=== PATIENT | female | born 1970 | race Caucasian/White ===

== ENCOUNTER → 2017-08-09 | Outpatient (CLI) | payer BC ==
[2017-08-09 08:50] LABS: Basophils # (auto) 0 uL; Basophils % (auto) 0.5 % (0.0-2.0); Eosinophils # (auto) 0.2 uL; Monocytes # (auto) 0.6 uL; Neutrophils # (auto) 5.8 uL
[2017-08-09 08:52] LABS: Eosinophils % (auto) 2.1 % (0.0-7.0); Hematocrit 25.5 % (36.0-46.0); Hemoglobin 7.6 g/dL (12.2-16.2); Lymphocytes % (auto) 23.2 % (10.0-50.0); Mean Corpuscular Hgb Conc. 29.8 g/dL (32.0-36.0); Mean Corpuscular Volume 63.8 fL (80.0-100.0); Monocytes % (auto) 7.4 % (0.0-12.0); Neutrophils % (auto) 66.8 % (37.0-80.0); Platelet Count (auto) 453 10^3/uL (140-450); Red Cell Distribution Width 17.7 % (11.8-14.3); White Blood Cell 8.7 10^3/uL (4.4-10.8)
[2017-08-09 09:17] LABS: Leuteinizing Hormone 2.8 IU/L
[2017-08-09 09:19] LABS: Follicle Stimulating Hormone 5.08 IU/L (SEE BELOW)
== END | disposition home or self-care (01) ==
LOC: LAB 07:34
PROVIDERS: ATTEND Obstetrics & Gynecology
DX: N93.9 Abnormal uterine and vaginal bleeding, unspecified (principal)
CPT/HCPCS: 36415; 82670; 83001; 83002; 84403; 84443; 85025

== ENCOUNTER 2017-08-10 13:51 | Observation (INO) | payer BC ==
[~2017-08-10] VITALS: Ht 165.1 cm; Wt 113.4 kg
[2017-08-10] VITALS (8 sets, daily range): BP systolic 105–133; BP diastolic 42–78
[2017-08-10 14:58] LABS: Basophils # (auto) 0.1 uL; Eosinophils # (auto) 0.2 uL; Monocytes # (auto) 0.7 uL; Nucleated Red Blood Cells % 0.1 %; Red Cell Distribution Width 18.2 % (11.8-14.3)
[2017-08-10 15:01] LABS: Hematocrit 26.2 % (36.0-46.0); Hemoglobin 7.9 g/dL (12.2-16.2); Lymphocytes # (auto) 2.6 uL; Mean Corpuscular Hemoglobin 19.1 pg (28.0-32.0); Mean Corpuscular Hgb Conc. 30.1 g/dL (32.0-36.0); Mean Corpuscular Volume 63.5 fL (80.0-100.0); Neutrophils # (auto) 6.3 uL; Platelet Count (auto) 459 10^3/uL (140-450); Red Blood Cells 4.12 10^6/uL (4.0-5.20); White Blood Cell 9.9 10^3/uL (4.4-10.8)
[2017-08-10 15:13] LABS: INR 0.94 (0.9-1.15); Partial Thromboplastin Time 27.2 sec (22.64-33.71); Prothrombin Time 10.2 sec (9.37-12.3)
[2017-08-10 15:22] LABS: Albumin 3.6 g/dL (3.4-5.0); BUN/Creatinine Ratio 19.7; Bilirubin, Total 0.2 mg/dL (0.2-1.0); Calcium 8.5 mg/dL (8.5-10.1); Magnesium 2.4 mg/dL (1.6-2.6); Potassium 3.5 mmol/L (3.5-5.1); Total Protein 7.8 g/dL (6.4-8.2)
[2017-08-10 15:40] LABS: Urine Specific Gravity 1.007 (1.001-1.035)
[2017-08-10 15:41] LABS: Urine Bacteria NONE SEEN /hpf (None Seen); Urine Blood Negative /uL (Negative); Urine Mucus FEW (None Seen); Urine WBC <1 /hpf (0 - 5)
[2017-08-10 22:33] LABS: Hematocrit 29.1 % (36.0-46.0); Hemoglobin 8.9 g/dL (12.2-16.2)
== END 2017-08-10 23:24 | disposition home or self-care (01) | DRG 812 ==
LOC: ER 13:51 → OVERFLOW 14:05 → ER 23:23
PROVIDERS: ADMIT Family Medicine; ATTEND Family Medicine
DX: D50.9 Iron deficiency anemia, unspecified (principal); N92.0 Excessive and frequent menstruation with regular cycle; N93.9 Abnormal uterine and vaginal bleeding, unspecified; R94.6 Abnormal results of thyroid function studies; Z83.3 Family history of diabetes mellitus; Z82.49 Family history of ischemic heart disease and other diseases of the circulatory system
CPT/HCPCS: 36415; 71045; 80053; 81001; 83735; 84443; 85014; 85018; 85025; 85610; 85730; 86850; 86900; 86901; 86920; 99285; G0378; J7030; P9016; 36430

== ENCOUNTER → 2017-08-19 | Outpatient (CLI) | payer BC ==
[2017-08-19 13:45] LABS: Basophils # (auto) 0.1 uL; Eosinophils # (auto) 0.2 uL; Monocytes # (auto) 0.7 uL
[2017-08-19 13:47] LABS: Basophils % (auto) 0.9 % (0.0-2.0); Eosinophils % (auto) 1.8 % (0.0-7.0); Hematocrit 31.9 % (36.0-46.0); Hemoglobin 9.9 g/dL (12.2-16.2); Lymphocytes # (auto) 2.4 uL; Lymphocytes % (auto) 25.7 % (10.0-50.0); Mean Corpuscular Hemoglobin 21.3 pg (28.0-32.0); Mean Corpuscular Hgb Conc. 30.9 g/dL (32.0-36.0); Mean Corpuscular Volume 68.8 fL (80.0-100.0); Monocytes % (auto) 7.3 % (0.0-12.0); Neutrophils # (auto) 6.1 uL; Neutrophils % (auto) 64.3 % (37.0-80.0); Platelet Count (auto) 448 10^3/uL (140-450); Red Blood Cells 4.64 10^6/uL (4.0-5.20); White Blood Cell 9.5 10^3/uL (4.4-10.8)
[2017-08-19 13:48] LABS: Red Cell Distribution Width 26.2 % (11.8-14.3)
== END | disposition home or self-care (01) ==
LOC: LAB 13:28
PROVIDERS: ATTEND Obstetrics & Gynecology
DX: N93.9 Abnormal uterine and vaginal bleeding, unspecified (principal); D50.9 Iron deficiency anemia, unspecified; R94.6 Abnormal results of thyroid function studies
CPT/HCPCS: 36415; 84443; 85025

== ENCOUNTER → 2017-08-19 | Outpatient (CLI) | payer BC | END | disposition home or self-care (01) | LOC: LAB 10:46 | PROVIDERS: ATTEND Obstetrics & Gynecology | DX: N93.8 Other specified abnormal uterine and vaginal bleeding (principal) ==

== ENCOUNTER → 2017-09-13 | Outpatient (CLI) | payer BC ==
[2017-09-13 07:51] LABS: Basophils # (auto) 0.1 uL; Eosinophils # (auto) 0.1 uL; Lymphocytes # (auto) 1.9 uL; Monocytes # (auto) 0.6 uL; Platelet Count (auto) 390 10^3/uL (140-450)
[2017-09-13 07:54] LABS: Basophils % (auto) 0.6 % (0.0-2.0); Eosinophils % (auto) 1.8 % (0.0-7.0); Hematocrit 32.6 % (36.0-46.0); Hemoglobin 10.3 g/dL (12.2-16.2); Lymphocytes % (auto) 22.5 % (10.0-50.0); Mean Corpuscular Hemoglobin 21.8 pg (28.0-32.0); Mean Corpuscular Hgb Conc. 31.6 g/dL (32.0-36.0); Mean Corpuscular Volume 68.8 fL (80.0-100.0); Monocytes % (auto) 7.4 % (0.0-12.0); Neutrophils # (auto) 5.6 uL; Neutrophils % (auto) 67.7 % (37.0-80.0); Red Blood Cells 4.73 10^6/uL (4.0-5.20); White Blood Cell 8.3 10^3/uL (4.4-10.8)
[2017-09-13 08:00] LABS: Red Cell Distribution Width 26.6 % (11.8-14.3)
[2017-09-13 08:46] LABS: Cholesterol 150 mg/dL (< 200); HDL Cholesterol 29 mg/dL (40-59); LDL Cholesterol 99 mg/dL (< 100); Triglycerides 213 mg/dL (< 150)
[2017-09-13 11:06] LABS: Free T4 (Free Thyroxine) 1.7 ng/dL (0.89-1.76)
[2017-09-13 11:07] LABS: T3 Total 1.29 ng/mL (0.60-1.81)
== END | disposition home or self-care (01) ==
LOC: LAB 07:26
PROVIDERS: ATTEND Physician Assistant
DX: E78.5 Hyperlipidemia, unspecified (principal); E03.9 Hypothyroidism, unspecified; E07.9 Disorder of thyroid, unspecified
CPT/HCPCS: 36415; 80061; 84439; 84443; 84480; 85025; 86376; 86800

== ENCOUNTER → 2017-12-22 | Outpatient (CLI) | payer BC ==
[2017-12-22 08:26] LABS: Basophils # (auto) 0 uL; Eosinophils # (auto) 0.2 uL; Hemoglobin 9.4 g/dL (12.2-16.2); Lymphocytes % (auto) 23.8 % (10.0-50.0); Neutrophils # (auto) 5.2 uL; White Blood Cell 7.8 10^3/uL (4.4-10.8)
[2017-12-22 08:28] LABS: Basophils % (auto) 0.4 % (0.0-2.0); Hematocrit 30.9 % (36.0-46.0); Lymphocytes # (auto) 1.8 uL; Mean Corpuscular Hgb Conc. 30.4 g/dL (32.0-36.0); Mean Corpuscular Volume 65.8 fL (80.0-100.0); Monocytes # (auto) 0.6 uL; Monocytes % (auto) 7.2 % (0.0-12.0); Neutrophils % (auto) 66.6 % (37.0-80.0); Platelet Count (auto) 417 10^3/uL (140-450); Red Cell Distribution Width 16.7 % (11.8-14.3)
[2017-12-22 08:50] LABS: Albumin 3.5 g/dL (3.4-5.0); BUN/Creatinine Ratio 27.8; Bilirubin, Total 0.2 mg/dL (0.2-1.0); Calcium 8.6 mg/dL (8.5-10.1); Potassium 3.6 mmol/L (3.5-5.1); Total Protein 7.9 g/dL (6.4-8.2)
[2017-12-22 08:59] LABS: Free T4 (Free Thyroxine) 1.27 ng/dL (0.89-1.76); T3 Total 0.95 ng/mL (0.60-1.81)
== END | disposition home or self-care (01) ==
LOC: LAB 07:18
PROVIDERS: ATTEND Physician Assistant
DX: E78.5 Hyperlipidemia, unspecified (principal); E03.9 Hypothyroidism, unspecified; E55.9 Vitamin D deficiency, unspecified; R76.8 Other specified abnormal immunological findings in serum; R94.6 Abnormal results of thyroid function studies; D64.9 Anemia, unspecified; Z82.61 Family history of arthritis
CPT/HCPCS: 36415; 80053; 80061; 82306; 83540; 83550; 84439; 84443; 84480; 85025

== ENCOUNTER → 2018-05-31 | Outpatient (CLI) | payer BC ==
[2018-05-31 08:47] LABS: % Iron Saturation 5.2 % (15-50)
[2018-05-31 08:48] LABS: Albumin 3.3 g/dL (3.4-5.0); Calcium 8.2 mg/dL (8.5-10.1); Potassium 3.9 mmol/L (3.5-5.1)
[2018-05-31 08:52] LABS: BUN/Creatinine Ratio 26.4; Bilirubin, Total 0.3 mg/dL (0.2-1.0); Total Protein 7.6 g/dL (6.4-8.2)
[2018-05-31 09:02] LABS: Basophils # (auto) 0 uL; Eosinophils # (auto) 0.2 uL; Lymphocytes # (auto) 1.8 uL; Mean Corpuscular Hgb Conc. 30.1 g/dL (32.0-36.0); White Blood Cell 8.7 10^3/uL (4.4-10.8)
[2018-05-31 09:04] LABS: Basophils % (auto) 0.4 % (0.0-2.0); Eosinophils % (auto) 1.8 % (0.0-7.0); Hematocrit 30.1 % (36.0-46.0); Hemoglobin 9.1 g/dL (12.2-16.2); Mean Corpuscular Hemoglobin 19.8 pg (28.0-32.0); Mean Corpuscular Volume 65.6 fL (80.0-100.0); Monocytes # (auto) 0.6 uL; Monocytes % (auto) 7.1 % (0.0-12.0); Neutrophils # (auto) 6.1 uL; Neutrophils % (auto) 69.7 % (37.0-80.0); Platelet Count (auto) 418 10^3/uL (140-450); Red Blood Cells 4.59 10^6/uL (4.0-5.20); Red Cell Distribution Width 17.7 % (11.8-14.3)
[2018-05-31 10:10] LABS: Free T4 (Free Thyroxine) 1.05 ng/dL (0.89-1.76); T3 Total 0.98 ng/mL (0.60-1.81)
== END | disposition home or self-care (01) ==
LOC: LAB 07:35
PROVIDERS: ATTEND Physician Assistant
DX: E03.9 Hypothyroidism, unspecified (principal); D64.9 Anemia, unspecified; E55.9 Vitamin D deficiency, unspecified; E61.1 Iron deficiency; R76.8 Other specified abnormal immunological findings in serum; R94.6 Abnormal results of thyroid function studies; E78.5 Hyperlipidemia, unspecified
CPT/HCPCS: 36415; 80053; 80061; 82306; 83540; 83550; 84439; 84443; 84480; 85025; 86038; 86431

== ENCOUNTER → 2018-07-12 | Outpatient (CLI) | payer BC ==
[2018-07-12 10:27] LABS: Basophils # (auto) 0 uL; Eosinophils # (auto) 0.1 uL; Eosinophils % (auto) 1.7 % (0.0-7.0); Hemoglobin 8.3 g/dL (12.2-16.2); Mean Corpuscular Hgb Conc. 30.3 g/dL (32.0-36.0)
[2018-07-12 10:28] LABS: Basophils % (auto) 0.5 % (0.0-2.0); Hematocrit 27.4 % (36.0-46.0); Lymphocytes # (auto) 1.6 uL; Lymphocytes % (auto) 20.9 % (10.0-50.0); Mean Corpuscular Hemoglobin 20.7 pg (28.0-32.0); Mean Corpuscular Volume 68.4 fL (80.0-100.0); Monocytes # (auto) 0.6 uL; Monocytes % (auto) 7.6 % (0.0-12.0); Neutrophils # (auto) 5.3 uL; Neutrophils % (auto) 69.3 % (37.0-80.0); Platelet Count (auto) 395 10^3/uL (140-450); Red Blood Cells 4.01 10^6/uL (4.0-5.20); White Blood Cell 7.7 10^3/uL (4.4-10.8)
[2018-07-12 10:35] LABS: Red Cell Distribution Width 20.8 % (11.8-14.3)
== END | disposition home or self-care (01) ==
LOC: LAB 08:34
PROVIDERS: ATTEND Obstetrics & Gynecology
DX: N93.9 Abnormal uterine and vaginal bleeding, unspecified (principal)
CPT/HCPCS: 36415; 84443; 85025

== ENCOUNTER 2018-07-20 14:24 | Emergency (ER) | payer BC ==
[~2018-07-20] VITALS: Ht 165.1 cm; Wt 108.9 kg
[2018-07-20 15:19] LABS: Basophils # (auto) 0 uL; Basophils % (auto) 0.4 % (0.0-2.0); Eosinophils # (auto) 0.2 uL; Eosinophils % (auto) 1.8 % (0.0-7.0); Hemoglobin 7.3 g/dL (12.2-16.2); Lymphocytes # (auto) 1.8 uL; Lymphocytes % (auto) 20.7 % (10.0-50.0); Mean Corpuscular Hemoglobin 20.7 pg (28.0-32.0); Mean Corpuscular Hgb Conc. 30.4 g/dL (32.0-36.0); Mean Corpuscular Volume 68.2 fL (80.0-100.0); Monocytes # (auto) 0.6 uL; Monocytes % (auto) 7.4 % (0.0-12.0); Neutrophils # (auto) 6.1 uL; Neutrophils % (auto) 69.7 % (37.0-80.0); Platelet Count (auto) 408 10^3/uL (140-450); Red Blood Cells 3.52 10^6/uL (4.0-5.20); White Blood Cell 8.8 10^3/uL (4.4-10.8)
[2018-07-20 15:21] LABS: Red Cell Distribution Width 20.1 % (11.8-14.3)
[2018-07-20 15:36] LABS: Albumin 3.3 g/dL (3.4-5.0); Potassium 3.8 mmol/L (3.5-5.1)
[2018-07-20 15:37] LABS: INR 0.93 (0.9-1.15); Partial Thromboplastin Time 27.4 sec (23.78-33.04)
[2018-07-20 15:39] LABS: BUN/Creatinine Ratio 23.9; Bilirubin, Total 0.2 mg/dL (0.2-1.0); Total Protein 7.2 g/dL (6.4-8.2)
[2018-07-20] MEDS ORDERED: SODIUM BICARBONATE 8.4 % INJ 50ML VIAL IV ONE (19:14)
[2018-07-20 23:00] VITALS: BP 135/78
[2018-07-20 23:19] VITALS: BP 135/78
[2018-07-20 23:35] VITALS: BP 122/80
== END 2018-07-21 01:48 | disposition home or self-care (01) ==
LOC: ER 14:26
DX: D64.9 Anemia, unspecified (principal); N92.0 Excessive and frequent menstruation with regular cycle
CPT/HCPCS: 36415; 36430; 80053; 84443; 85025; 85610; 85730; 86850; 86900; 86901; 86920; 94761; 99285; J7040; P9016

== ENCOUNTER → 2018-08-05 | Day surgery (SDC) | payer BC ==
[2018-08-02 10:42] LABS: Eosinophils # (auto) 0.1 uL; Eosinophils % (auto) 1.8 % (0.0-7.0); Hemoglobin 10.2 g/dL (12.2-16.2); Monocytes # (auto) 0.7 uL
[2018-08-02 10:45] LABS: Basophils # (auto) 0 uL; Basophils % (auto) 0.5 % (0.0-2.0); Hematocrit 32.2 % (36.0-46.0); Lymphocytes # (auto) 1.9 uL; Lymphocytes % (auto) 24.2 % (10.0-50.0); Mean Corpuscular Hemoglobin 22.4 pg (28.0-32.0); Mean Corpuscular Hgb Conc. 31.6 g/dL (32.0-36.0); Mean Corpuscular Volume 70.8 fL (80.0-100.0); Monocytes % (auto) 9.3 % (0.0-12.0); Neutrophils # (auto) 4.9 uL; Neutrophils % (auto) 64.2 % (37.0-80.0); Platelet Count (auto) 356 10^3/uL (140-450); Red Blood Cells 4.55 10^6/uL (4.0-5.20); Urine Bacteria FEW /hpf (None Seen); Urine Blood 1+ /uL (Negative); Urine Mucus FEW (None Seen); Urine Specific Gravity 1.019 (1.001-1.035); Urine WBC 3 /hpf (0 - 5); White Blood Cell 7.7 10^3/uL (4.4-10.8)
[2018-08-02 10:52] LABS: Potassium 3.7 mmol/L (3.5-5.1)
[2018-08-02 10:53] LABS: Red Cell Distribution Width 22.1 % (11.8-14.3)
[2018-08-02 10:55] LABS: INR 0.93 (0.9-1.15); Partial Thromboplastin Time 29.2 sec (23.78-33.04)
[2018-08-02 11:01] LABS: Albumin 3.3 g/dL (3.4-5.0); BUN/Creatinine Ratio 19.4; Bilirubin, Total 0.2 mg/dL (0.2-1.0); Calcium 8.3 mg/dL (8.5-10.1); Total Protein 7.5 g/dL (6.4-8.2)
[~2018-08-05] MED LIST: FLUO40CA PO; HYDROmorphone HCL 2 MG/ML VL IV PRN; KETOROLAC TROMETH 30 MG/ML 1ML VIAL IV ONE; KETOROLAC TROMETH 60MG/2ML VIAL IM ONE; LACTATED RINGER'S 1,000 ML IV SCH; LEVO125T7 PO; LIDOCAINE HCL 2% TOP JELLY 5ML TOP ONE; MEPERIDINE HCL (50 MG/ML) 1 ML VIAL ONE; METOCLOPRAMIDE HCL 5MG/ml INJ 2ml VIAL IV ONE; MIDAZOLAM HCL 1MG/1ML-2 ML VIAL ONE; ONDANSETRON HCL 4 MG/2 ML VIAL IV PRN; ONDANSETRON HCL 4 MG/2 ML VIAL ONE; PROPOFOL 10 MG/ML 20 ML IV ONE; SODIUM CHLORIDE LOCK 20 ML ONE; SUCCINYLCHOLINE CHLORIDE 20 MG/ML 10ML VIAL IV ONE; ceFAZolin 1GM/50ML 50 ML IV ONE; fentaNYL CITRATE 100 MCG/2 ML VL ONE
[2018-08-05 09:35] VITALS: BP 114/63
== END | disposition home or self-care (01) ==
LOC: SUR 06:05
PROVIDERS: ATTEND Obstetrics & Gynecology
DX: N93.9 Abnormal uterine and vaginal bleeding, unspecified (principal); D64.9 Anemia, unspecified; E03.9 Hypothyroidism, unspecified; I10 Essential (primary) hypertension; E66.01 Morbid (severe) obesity due to excess calories; Z68.41 Body mass index [BMI] 40.0-44.9, adult; Z90.49 Acquired absence of other specified parts of digestive tract; Z98.890 Other specified postprocedural states; Z82.49 Family history of ischemic heart disease and other diseases of the circulatory system; Z88.8 Allergy status to other drugs, medicaments and biological substances; Z79.899 Other long term (current) drug therapy
CPT/HCPCS: 36415; 58563; 80053; 81001; 84702; 85025; 85610; 85730; 86850; 86900; 86901; J0330; J0690; J1885; J2175; J2250; J2405; J2704; J3010

== ENCOUNTER → 2019-07-21 | Outpatient (CLI) | payer BC ==
[~2019-07-21] MED LIST changes: -HYDROmorphone HCL 2 MG/ML VL IV PRN; -KETOROLAC TROMETH 30 MG/ML 1ML VIAL IV ONE; -KETOROLAC TROMETH 60MG/2ML VIAL IM ONE; -LACTATED RINGER'S 1,000 ML IV SCH; -LIDOCAINE HCL 2% TOP JELLY 5ML TOP ONE; -MEPERIDINE HCL (50 MG/ML) 1 ML VIAL ONE; -METOCLOPRAMIDE HCL 5MG/ml INJ 2ml VIAL IV ONE; -MIDAZOLAM HCL 1MG/1ML-2 ML VIAL ONE; -ONDANSETRON HCL 4 MG/2 ML VIAL IV PRN; -ONDANSETRON HCL 4 MG/2 ML VIAL ONE; -PROPOFOL 10 MG/ML 20 ML IV ONE; -SODIUM CHLORIDE LOCK 20 ML ONE; -SUCCINYLCHOLINE CHLORIDE 20 MG/ML 10ML VIAL IV ONE; -ceFAZolin 1GM/50ML 50 ML IV ONE; -fentaNYL CITRATE 100 MCG/2 ML VL ONE
[2019-07-21 09:29] LABS: Urine Bacteria NONE SEEN /hpf (None Seen); Urine Blood Negative /uL (Negative); Urine Mucus FEW (None Seen); Urine Specific Gravity 1.026 (1.001-1.035); Urine WBC 12 /hpf (0 - 5)
[2019-07-21 09:31] LABS: Basophils # (auto) 0.1 uL; Basophils % (auto) 0.6 % (0.0-2.0); Eosinophils # (auto) 0.1 uL; Eosinophils % (auto) 1.5 % (0.0-7.0); Hematocrit 43.1 % (36.0-46.0); Hemoglobin 14.5 g/dL (12.2-16.2); Mean Corpuscular Hemoglobin 29.2 pg (28.0-32.0); Mean Corpuscular Hgb Conc. 33.6 g/dL (32.0-36.0); Mean Corpuscular Volume 86.9 fL (80.0-100.0); Monocytes # (auto) 0.5 uL; Monocytes % (auto) 6.3 % (0.0-12.0); Neutrophils # (auto) 5.3 uL; Neutrophils % (auto) 66.6 % (37.0-80.0); Nucleated Red Blood Cells % 0.1 %; Platelet Count (auto) 319 10^3/uL (140-450); Red Blood Cells 4.96 10^6/uL (4.0-5.20); Red Cell Distribution Width 14.4 % (11.8-14.3); White Blood Cell 7.9 10^3/uL (4.4-10.8)
[2019-07-21 09:48] LABS: Albumin 3.8 g/dL (3.4-5.0); Potassium 4.1 mmol/L (3.5-5.1)
[2019-07-21 09:53] LABS: BUN/Creatinine Ratio 25.3; Bilirubin, Total 0.3 mg/dL (0.2-1.0)
== END | disposition home or self-care (01) ==
LOC: LAB 09:03
PROVIDERS: ATTEND Physician Assistant
DX: D55.9 Anemia due to enzyme disorder, unspecified (principal); D64.9 Anemia, unspecified; R76.8 Other specified abnormal immunological findings in serum; E78.5 Hyperlipidemia, unspecified; E03.9 Hypothyroidism, unspecified; D50.8 Other iron deficiency anemias; E07.9 Disorder of thyroid, unspecified
CPT/HCPCS: 36415; 80053; 80061; 81001; 82306; 82607; 84443; 85025; 86038

== ENCOUNTER → 2019-12-20 | Outpatient (CLI) | payer BC ==
[2019-12-20 08:10] LABS: Urine WBC None Seen /hpf (0 - 5)
[2019-12-20 08:25] LABS: Basophils # (auto) 0 10 ^3/uL (0-0.2); Basophils % (auto) 0.5 % (0.0-2.0); Eosinophils # (auto) 0.2 10 ^3/uL (0-0.8); Eosinophils % (auto) 2.1 % (0.0-7.0); Hematocrit 42.1 % (36.0-46.0); Hemoglobin 14.1 g/dL (12.2-16.2); Lymphocytes # (auto) 1.8 10 ^3/uL (0.4-5.4); Lymphocytes % (auto) 23.4 % (10.0-50.0); Mean Corpuscular Hemoglobin 29.2 pg (28.0-32.0); Mean Corpuscular Hgb Conc. 33.5 g/dL (32.0-36.0); Mean Corpuscular Volume 87.2 fL (80.0-100.0); Monocytes # (auto) 0.6 10 ^3/uL (0-1.3); Monocytes % (auto) 7.9 % (0.0-12.0); Neutrophils # (auto) 5.2 10 ^3/uL (1.6-8.6); Neutrophils % (auto) 66.1 % (37.0-80.0); Nucleated Red Blood Cells % 0.1 %; Platelet Count (auto) 296 10^3/uL (140-450); Red Blood Cells 4.83 10^6/uL (4.0-5.20); Red Cell Distribution Width 13.5 % (11.8-14.3); White Blood Cell 7.9 10^3/uL (4.4-10.8)
[2019-12-20 08:27] LABS: Urine Bacteria NONE SEEN /hpf (None Seen); Urine Blood Negative /uL (Negative); Urine Specific Gravity 1.014 (1.001-1.035)
[2019-12-20 08:55] LABS: Potassium 3.7 mmol/L (3.5-5.1); Protein, Urine 8.6 mg/dL (0.0-11.9)
[2019-12-20 09:08] LABS: Albumin 3.3 g/dL (3.4-5.0); BUN/Creatinine Ratio 21.9; Bilirubin, Total 0.3 mg/dL (0.2-1.0); CRP High Sensitivity 1.56 mg/dL (< 0.3); Calcium 8.5 mg/dL (8.5-10.1); Total Protein 7.4 g/dL (6.4-8.2)
[2019-12-21 10:19] LABS: Hepatitis B Core Total AB Negative; Hepatitis B Surface Antigen Negative (Negative)
== END | disposition home or self-care (01) ==
LOC: LAB 07:39
PROVIDERS: ATTEND Internal Medicine Rheumatology
DX: M05.79 Rheumatoid arthritis with rheumatoid factor of multiple sites without organ or systems involvement (principal); R94.5 Abnormal results of liver function studies; M32.10 Systemic lupus erythematosus, organ or system involvement unspecified
CPT/HCPCS: 36415; 80053; 81001; 82570; 84156; 85025; 85652; 86141; 86200; 86704; 87340

== ENCOUNTER → 2020-09-14 | Outpatient (CLI) | payer BC ==
[2020-09-14 10:40] LABS: Basophils # (auto) 0 10 ^3/uL (0-0.2); Basophils % (auto) 0.3 % (0.0-2.0); Eosinophils # (auto) 0.1 10 ^3/uL (0-0.8); Hematocrit 41.5 % (36.0-46.0); Hemoglobin 14.1 g/dL (12.2-16.2); Lymphocytes # (auto) 2.1 10 ^3/uL (0.4-5.4); Lymphocytes % (auto) 24.8 % (10.0-50.0); Mean Corpuscular Hemoglobin 30.5 pg (28.0-32.0); Mean Corpuscular Volume 89.6 fL (80.0-100.0); Monocytes # (auto) 0.6 10 ^3/uL (0-1.3); Monocytes % (auto) 6.8 % (0.0-12.0); Neutrophils # (auto) 5.8 10 ^3/uL (1.6-8.6); Neutrophils % (auto) 67.1 % (37.0-80.0); Nucleated Red Blood Cells % 0.1 %; Platelet Count (auto) 291 10^3/uL (140-450); Red Blood Cells 4.63 10^6/uL (4.0-5.20); Red Cell Distribution Width 12.9 % (11.8-14.3); White Blood Cell 8.7 10^3/uL (4.4-10.8)
[2020-09-14 11:12] LABS: Albumin 3.5 g/dL (3.4-5.0); Calcium 9.1 mg/dL (8.5-10.1); Potassium 3.6 mmol/L (3.5-5.1)
[2020-09-14 11:19] LABS: BUN/Creatinine Ratio 20.3; Bilirubin, Total 0.3 mg/dL (0.2-1.0); Total Protein 7.9 g/dL (6.4-8.2)
== END | disposition home or self-care (01) ==
LOC: LAB 10:26
PROVIDERS: ATTEND Physician Assistant
DX: E78.5 Hyperlipidemia, unspecified (principal); E53.8 Deficiency of other specified B group vitamins; E03.9 Hypothyroidism, unspecified; E61.1 Iron deficiency; E55.9 Vitamin D deficiency, unspecified
CPT/HCPCS: 36415; 80053; 80061; 82306; 82607; 84439; 84443; 84480; 85025

== ENCOUNTER → 2021-01-14 | Outpatient (CLI) | payer BC | END | disposition home or self-care (01) | LOC: LAB 11:07 | PROVIDERS: ATTEND Obstetrics & Gynecology | DX: N84.1 Polyp of cervix uteri (principal) ==

== ENCOUNTER → 2021-01-14 | Outpatient (CLI) | payer BC ==
[2021-01-14 10:44] LABS: Free T4 (Free Thyroxine) 1.31 ng/dL (0.89-1.76)
[2021-01-14 10:45] LABS: Follicle Stimulating Hormone 5.17 IU/L (SEE BELOW); Leuteinizing Hormone 3.5 IU/L
== END | disposition home or self-care (01) ==
LOC: LAB 09:13
PROVIDERS: ATTEND Obstetrics & Gynecology
DX: N95.1 Menopausal and female climacteric states (principal)
CPT/HCPCS: 36415; 82670; 83001; 83002; 84439; 84443

== ENCOUNTER → 2021-09-05 | Outpatient (CLI) | payer BC ==
[2021-09-05 08:57] LABS: Basophils # (auto) 0 10 ^3/uL (0-0.2); Basophils % (auto) 0.5 % (0.0-2.0); Eosinophils # (auto) 0.2 10 ^3/uL (0-0.8); Eosinophils % (auto) 3.1 % (0.0-7.0); Hematocrit 44.7 % (36.0-46.0); Lymphocytes # (auto) 2.2 10 ^3/uL (0.4-5.4); Lymphocytes % (auto) 27.4 % (10.0-50.0); Mean Corpuscular Hemoglobin 30.2 pg (28.0-32.0); Mean Corpuscular Hgb Conc. 33.6 g/dL (32.0-36.0); Mean Corpuscular Volume 89.8 fL (80.0-100.0); Monocytes # (auto) 0.6 10 ^3/uL (0-1.3); Monocytes % (auto) 7.6 % (0.0-12.0); Neutrophils # (auto) 4.8 10 ^3/uL (1.6-8.6); Neutrophils % (auto) 61.4 % (37.0-80.0); Nucleated Red Blood Cells % 0.1 %; Red Blood Cells 4.97 10^6/uL (4.0-5.20); Red Cell Distribution Width 13.1 % (11.8-14.3); White Blood Cell 7.8 10^3/uL (4.4-10.8)
[2021-09-05 09:03] LABS: Albumin 3.6 g/dL (3.4-5.0); Potassium 4.3 mmol/L (3.5-5.1)
[2021-09-05 09:06] LABS: Free T4 (Free Thyroxine) 1.17 ng/dL (0.89-1.76)
[2021-09-05 09:10] LABS: BUN/Creatinine Ratio 26.6; Bilirubin, Total 0.6 mg/dL (0.2-1.0); Calcium 9.4 mg/dL (8.5-10.1); Total Protein 7.7 g/dL (6.4-8.2)
== END | disposition home or self-care (01) ==
LOC: LAB 07:40
PROVIDERS: ATTEND Nurse Practitioner Family
DX: Z00.00 Encounter for general adult medical examination without abnormal findings (principal); F32.9 Major depressive disorder, single episode, unspecified; E03.9 Hypothyroidism, unspecified; E78.5 Hyperlipidemia, unspecified; E55.9 Vitamin D deficiency, unspecified; E53.8 Deficiency of other specified B group vitamins
CPT/HCPCS: 36415; 80053; 80061; 82306; 82607; 84439; 84443; 85025

== ENCOUNTER → 2022-03-27 | Outpatient (CLI) | payer BC | END | disposition home or self-care (01) | LOC: LAB 08:29 | PROVIDERS: ATTEND Student in an Organized Health Care Education/Training Program | DX: R94.6 Abnormal results of thyroid function studies (principal) | CPT/HCPCS: 36415; 84443 ==

== ENCOUNTER → 2022-07-17 | Day surgery (SDC) | payer BC ==
[2022-07-15 13:24] LABS: Basophils # (auto) 0.1 10 ^3/uL (0-0.2); Basophils % (auto) 0.6 % (0.0-2.0); Eosinophils # (auto) 0.2 10 ^3/uL (0-0.8); Eosinophils % (auto) 1.6 % (0.0-7.0); Hemoglobin 14.2 g/dL (12.2-16.2); Lymphocytes # (auto) 1.9 10 ^3/uL (0.4-5.4); Lymphocytes % (auto) 18.6 % (10.0-50.0); Mean Corpuscular Hemoglobin 29.6 pg (28.0-32.0); Mean Corpuscular Volume 89.6 fL (80.0-100.0); Monocytes # (auto) 0.7 10 ^3/uL (0-1.3); Monocytes % (auto) 6.3 % (0.0-12.0); Neutrophils # (auto) 7.5 10 ^3/uL (1.6-8.6); Neutrophils % (auto) 72.9 % (37.0-80.0); Red Cell Distribution Width 13.6 % (11.8-14.3); White Blood Cell 10.3 10^3/uL (4.4-10.8)
[2022-07-15 13:38] LABS: INR 0.98 (0.9-1.15); Partial Thromboplastin Time 30.8 sec (24.6-33.4)
[2022-07-15 14:04] LABS: Albumin 3.8 g/dL (3.4-5.0); Calcium 9.1 mg/dL (8.5-10.1); Potassium 4.1 mmol/L (3.5-5.1)
[2022-07-15 14:07] LABS: BUN/Creatinine Ratio 19.7; Bilirubin, Total 0.3 mg/dL (0.2-1.0); Total Protein 7.4 g/dL (6.4-8.2)
[~2022-07-17] VITALS: Ht 165.1 cm; Wt 112.0 kg
[2022-07-17] MEDS: fentaNYL CITRATE 100 MCG/2 ML VL ONE ×3 (11:36→11:44)
[2022-07-17] MEDS: MIDAZOLAM HCL 2MG/2ML 2ml VIAL (1mg/ml) ONE ×3 (11:36→11:44)
[2022-07-17] MEDS: diphenhdrAMINE HCL 50 MG/1 ML VL ONE ×2 (11:36→11:38)
[2022-07-17 12:35] VITALS: BP 144/66
== END | disposition home or self-care (01) ==
LOC: GI 09:55
PROVIDERS: ATTEND Internal Medicine Gastroenterology
DX: R19.4 Change in bowel habit (principal); K62.5 Hemorrhage of anus and rectum; K64.0 First degree hemorrhoids; Q43.8 Other specified congenital malformations of intestine
CPT/HCPCS: 36415; 45378; 80053; 81025; 84702; 85025; 85610; 85730; J1200; J2250; J3010; U0003; 99152; 99153

== ENCOUNTER → 2023-05-06 | Outpatient (CLI) | payer BC ==
[2023-05-06 12:10] LABS: Basophils # (auto) 0.1 10 ^3/uL (0-0.2); Basophils % (auto) 0.8 % (0.0-2.0); Eosinophils # (auto) 0.2 10 ^3/uL (0-0.8); Eosinophils % (auto) 1.9 % (0.0-7.0); Hemoglobin 14.4 g/dL (12.2-16.2); Lymphocytes % (auto) 21.6 % (10.0-50.0); Mean Corpuscular Hemoglobin 30.4 pg (28.0-32.0); Mean Corpuscular Hgb Conc. 34.3 g/dL (32.0-36.0); Mean Corpuscular Volume 88.7 fL (80.0-100.0); Monocytes # (auto) 0.8 10 ^3/uL (0-1.3); Monocytes % (auto) 8.3 % (0.0-12.0); Neutrophils # (auto) 6.3 10 ^3/uL (1.6-8.6); Neutrophils % (auto) 67.4 % (37.0-80.0); Nucleated Red Blood Cells % 0.1 %; Red Blood Cells 4.73 10^6/uL (4.0-5.20); Red Cell Distribution Width 13.4 % (11.8-14.3); White Blood Cell 9.3 10^3/uL (4.4-10.8)
[2023-05-06 12:50] LABS: Alanine Aminotransferase 20 U/L (7-40); Albumin 4.2 g/dL (3.2-4.8); Alkaline Phosphatase 136 U/L (46-116); Anion Gap 8 (5-15); Aspartate Aminotransferase 13 U/L (13-40); BUN/Creatinine Ratio 17.1 (10.0-20.0); Bilirubin, Total 0.3 mg/dL (0.2-1.0); Blood Urea Nitrogen 13 mg/dL (9-23); Calcium 9.3 mg/dL (8.5-10.1); Carbon Dioxide 27 mmol/L (20-30); Chloride 104 mmol/L (98-107); Cholesterol 164 mg/dL (< 200); Glucose 93 mg/dL (74-106); HDL Cholesterol 34 mg/dL (40-59); LDL Cholesterol 111 mg/dL (< 100); Potassium 4.4 mmol/L (3.5-5.1); Sodium 139 mmol/L (136-145); Total Protein 7.7 g/dL (5.7-8.2); Triglycerides 186 mg/dL (< 150)
[2023-05-06 13:10] LABS: Follicle Stimulating Hormone 49.49 IU/L (SEE BELOW); Prolactin 7.97 ng/mL (2.8-29.2)
== END | disposition home or self-care (01) ==
LOC: LAB 11:46
PROVIDERS: ATTEND Student in an Organized Health Care Education/Training Program
DX: E66.01 Morbid (severe) obesity due to excess calories (principal); E03.9 Hypothyroidism, unspecified; E78.49 Other hyperlipidemia
CPT/HCPCS: 36415; 80053; 80061; 83001; 84146; 84443; 85025

== ENCOUNTER → 2023-06-09 | Outpatient (CLI) | payer BC ==
[2023-06-09 10:11] LABS: Basophils # (auto) 0 10 ^3/uL (0-0.2); Basophils % (auto) 0.5 % (0.0-2.0); Eosinophils # (auto) 0.1 10 ^3/uL (0-0.8); Eosinophils % (auto) 1.4 % (0.0-7.0); Hematocrit 42.6 % (36.0-46.0); Hemoglobin 14.5 g/dL (12.2-16.2); Lymphocytes # (auto) 2.2 10 ^3/uL (0.4-5.4); Lymphocytes % (auto) 28.9 % (10.0-50.0); Mean Corpuscular Hemoglobin 29.8 pg (28.0-32.0); Mean Corpuscular Hgb Conc. 34.1 g/dL (32.0-36.0); Mean Corpuscular Volume 87.4 fL (80.0-100.0); Monocytes # (auto) 0.7 10 ^3/uL (0-1.3); Monocytes % (auto) 9.1 % (0.0-12.0); Neutrophils # (auto) 4.6 10 ^3/uL (1.6-8.6); Neutrophils % (auto) 60.1 % (37.0-80.0); Nucleated Red Blood Cells % 0.1 %; Red Blood Cells 4.87 10^6/uL (4.0-5.20); Red Cell Distribution Width 13.4 % (11.8-14.3); White Blood Cell 7.6 10^3/uL (4.4-10.8)
[2023-06-09 11:46] LABS: Follicle Stimulating Hormone 52.82 IU/L (SEE BELOW); Leuteinizing Hormone 30.3 IU/L
== END | disposition home or self-care (01) ==
LOC: LAB 09:56
PROVIDERS: ATTEND Obstetrics & Gynecology
DX: N95.1 Menopausal and female climacteric states (principal)
CPT/HCPCS: 36415; 82670; 83001; 83002; 84403; 84443; 85025

== ENCOUNTER → 2024-09-20 | Outpatient (CLI) | payer BC ==
[2024-09-20 07:29] LABS: Urine Bacteria None Seen /hpf (None Seen)
[2024-09-20 07:36] LABS: Basophils # (auto) 0 10 ^3/uL (0-0.2); Basophils % (auto) 0.7 % (0.0-2.0); Eosinophils # (auto) 0.2 10 ^3/uL (0-0.8); Eosinophils % (auto) 2.3 % (0.0-7.0); Hemoglobin 14.3 g/dL (12.2-16.2); Lymphocytes % (auto) 28.6 % (10.0-50.0); Mean Corpuscular Hemoglobin 29.7 pg (28.0-32.0); Mean Corpuscular Hgb Conc. 33.3 g/dL (32.0-36.0); Mean Corpuscular Volume 89.2 fL (80.0-100.0); Monocytes # (auto) 0.6 10 ^3/uL (0-1.3); Neutrophils # (auto) 4.1 10 ^3/uL (1.6-8.6); Neutrophils % (auto) 59.4 % (37.0-80.0); Nucleated Red Blood Cells % 0.1 %; Platelet Count (auto) 299 10^3/uL (140-450); Red Blood Cells 4.82 10^6/uL (4.0-5.20); White Blood Cell 6.8 10^3/uL (4.4-10.8)
[2024-09-20 07:54] LABS: Alanine Aminotransferase 22 U/L (7-40); Anion Gap 8 (5-15); Aspartate Aminotransferase 13 U/L (13-40); BUN/Creatinine Ratio 20.5 (10.0-20.0); Blood Urea Nitrogen 16 mg/dL (9-23); Calcium 9.7 mg/dL (8.7-10.4); Carbon Dioxide 29 mmol/L (20-31); Chloride 105 mmol/L (98-107); Potassium 4.5 mmol/L (3.5-5.1); Sodium 142 mmol/L (136-145)
[2024-09-20 07:55] LABS: Albumin 4.4 g/dL (3.2-4.8); Bilirubin, Total 0.3 mg/dL (0.2-1.0); Cholesterol 186 mg/dL (< 200); Total Protein 6.8 g/dL (5.7-8.2)
[2024-09-20 08:00] LABS: Alkaline Phosphatase 118 U/L (46-116); Glucose 111 mg/dL (74-106); HDL Cholesterol 38 mg/dL (40-59); LDL Cholesterol 133 mg/dL (< 100); Triglycerides 166 mg/dL (< 150)
[2024-09-20 08:15] LABS: Urine Blood Negative /uL (Negative); Urine Clarity Clear (Clear); Urine Color Light-Yellow (Yellow); Urine Protein, UAD Negative (Negative); Urine Specific Gravity 1.014 (1.001-1.035); Urine Squamous Epithelial Cell FEW /hpf (<5); Urine Urobilinogen Normal (Negative); Urine WBC 1 /HPF (0-5)
== END | disposition home or self-care (01) ==
LOC: LAB 07:14
PROVIDERS: ATTEND Internal Medicine
DX: Z00.01 Encounter for general adult medical examination with abnormal findings (principal); E78.5 Hyperlipidemia, unspecified; R74.8 Abnormal levels of other serum enzymes; E03.9 Hypothyroidism, unspecified; Z83.3 Family history of diabetes mellitus
CPT/HCPCS: 36415; 80053; 80061; 81001; 83036; 84439; 84443; 85025

== ENCOUNTER → 2024-12-06 | Outpatient (CLI) | payer BC ==
[2024-12-06 07:42] LABS: Basophils # (auto) 0.1 10 ^3/uL (0-0.2); Basophils % (auto) 0.9 % (0.0-2.0); Eosinophils # (auto) 0.2 10 ^3/uL (0-0.8); Eosinophils % (auto) 2.6 % (0.0-7.0); Hematocrit 43.3 % (36.0-46.0); Hemoglobin 14.6 g/dL (12.2-16.2); Lymphocytes # (auto) 1.9 10 ^3/uL (0.4-5.4); Lymphocytes % (auto) 24.5 % (10.0-50.0); Mean Corpuscular Hemoglobin 29.6 pg (28.0-32.0); Mean Corpuscular Hgb Conc. 33.7 g/dL (32.0-36.0); Mean Corpuscular Volume 87.8 fL (80.0-100.0); Monocytes # (auto) 0.5 10 ^3/uL (0-1.3); Monocytes % (auto) 6.9 % (0.0-12.0); Neutrophils # (auto) 4.9 10 ^3/uL (1.6-8.6); Neutrophils % (auto) 65.1 % (37.0-80.0); Nucleated Red Blood Cells % 0.1 %; Platelet Count (auto) 280 10^3/uL (140-450); Red Blood Cells 4.93 10^6/uL (4.0-5.20); Red Cell Distribution Width 13.8 % (11.8-14.3); White Blood Cell 7.6 10^3/uL (4.4-10.8)
[2024-12-06 08:15] LABS: Albumin 4.2 g/dL (3.2-4.8); Anion Gap 7 (5-15); Aspartate Aminotransferase 27 U/L (13-40); BUN/Creatinine Ratio 22.4 (10.0-20.0); Bilirubin, Total 0.4 mg/dL (0.2-1.0); Blood Urea Nitrogen 19 mg/dL (9-23); CRP High Sensitivity 0.65 mg/dL (<1.0); Calcium 9.4 mg/dL (8.7-10.4); Carbon Dioxide 30 mmol/L (20-31); Chloride 104 mmol/L (98-107); Glucose 102 mg/dL (74-106); Potassium 3.9 mmol/L (3.5-5.1); Sodium 141 mmol/L (136-145); Total Protein 6.7 g/dL (5.7-8.2)
[2024-12-06 08:16] LABS: Alanine Aminotransferase 40 U/L (7-40); Alkaline Phosphatase 119 U/L (46-116); Erythrocyte Sedimentation Rate 9 mm/hr (0-20)
[2024-12-07 08:07] LABS: Complement C3 160 mg/dL (82-167); Rheumatoid Arthritis Factor <10.0 IU/mL (<14.0); Thyroid Peroxidase (TPO) Ab 19 IU/mL (0-34)
[2024-12-07 14:07] LABS: Anti-Nuclear Antibody Direct Positive (Negative); Anti-dsDNA Antibody <1 IU/mL (0-9); Antiscleroderma-70 Antibody <0.2 AI (0.0-0.9); Sjogren's Anti-SS-A Antibody <0.2 AI (0.0-0.9); Sjogren's Anti-SS-B Antibody <0.2 AI (0.0-0.9); Smith Antibody <0.2 AI (0.0-0.9)
[2024-12-08 13:07] LABS: Actin (Smooth Muscle) Antibody 5 Units (0-19); Mitochondrial (M2) Antibody <20.0 Units (0.0-20.0)
[2024-12-08 16:07] LABS: Angiotensin-Converting Enzyme 36 U/L (14-82)
[2024-12-08 17:07] LABS: Cytoplasmic (C-ANCA) <1:20 titer (Neg:<1:20); Perinuclear (P-ANCA) <1:20 titer (Neg:<1:20)
[2024-12-08 20:07] LABS: QuantiFERON-TB Gold Plus Negative (Negative)
== END | disposition home or self-care (01) ==
LOC: LAB 07:15
PROVIDERS: ATTEND Nurse Practitioner
DX: H20.9 Unspecified iridocyclitis (principal); R76.8 Other specified abnormal immunological findings in serum; M25.50 Pain in unspecified joint
CPT/HCPCS: 36415; 80053; 82164; 85025; 85652; 86141; 86160; 86225; 86235; 86256; 86376; 86431; 86780; 86812

== ENCOUNTER 2025-02-07 07:53 | Outpatient (CLI) | payer BC | END 2025-02-07 17:00 | disposition home or self-care (01) | LOC: LAB 07:53 | PROVIDERS: ATTEND Nurse Practitioner | DX: D86.9 Sarcoidosis, unspecified (principal); M25.50 Pain in unspecified joint; M25.60 Stiffness of unspecified joint, not elsewhere classified | CPT/HCPCS: 36415; 82164; 85652; 86141; 86200; 86256 ==